=== PATIENT | male | born 1975 ===

== ENCOUNTER 2024-02-09 09:01 | Day surgery (SDC) | payer OTHER ==
[2024-02-05 14:52] VITALS: BMI 25.5
[2024-02-09] MEDS ORDERED: Lidocaine 1% PF 5 ML VIAL ONE (11:50)
[2024-02-09] MEDS ORDERED: PROPOFOL 40 ML ONE (11:50)
== END 2024-02-09 12:50 | disposition home or self-care (01) ==
LOC: CSHSDC 09:01
PROVIDERS: ATTEND Internal Medicine Gastroenterology
PROC: 0DJD8ZZ Inspection of Lower Intestinal Tract, Via Natural or Artificial Opening Endoscopic (ICD-10-PCS; principal; 2024-02-09)
DX: Z12.11 Encounter for screening for malignant neoplasm of colon (principal); K64.9 Unspecified hemorrhoids; E11.9 Type 2 diabetes mellitus without complications; E78.5 Hyperlipidemia, unspecified; I10 Essential (primary) hypertension; Z79.899 Other long term (current) drug therapy
CPT/HCPCS: J2704